=== PATIENT | female | born 1995 | race African-American/Black ===

== ENCOUNTER 2024-03-27 18:15 | Emergency (ER) | payer OTHER ==
[2024-03-27 18:22] VITALS: BP 131/83; PULSE 86; RESP 18; TEMP 98.3; BMI 48.7
[2024-03-27 20:44] LABS: EPI CELLS 15 /uL (0-25.1); HYALINE CASTS 0 /uL (0-3.1); URINE APPEARANCE CLOUDY; URINE BACTERIA 306 /uL (0-1359); URINE BILIRUBIN NEGATIVE (NEGATIVE); URINE COLOR YELLOW; URINE GLUCOSE (UA) NEGATIVE (NEGATIVE); URINE KETONE 1+ (NEGATIVE); URINE LEUK ESTERASE NEGATIVE (NEGATIVE); URINE NITRITE NEGATIVE (NEGATIVE); URINE PROTEIN TRACE (NEGATIVE); URINE RBC 40 /uL (0-23.9); URINE WBC 22 /uL (0-25.8)
== END 2024-03-27 21:23 | disposition home or self-care (01) ==
LOC: JER 18:15
DX: R10.30 Lower abdominal pain, unspecified (principal)
CPT/HCPCS: 81003; 84703; 87086; 99283-25